=== PATIENT | female | born 1940 ===

== ENCOUNTER 2017-07-30 09:02 | Day surgery (SDC) | payer OTHER ==
[~2017-07-30] VITALS: Ht 162.6 cm; Wt 53.5 kg
[2017-07-30] VITALS (12 sets, daily range): BP systolic 124–155; BP diastolic 55–73
[~2017-07-30 09:02] MED LIST: ceFAZolin 1gm in D5W 55ml IVPB SCH; celeBREX 200mg Cap **SURGERY PATIENTS ONLY ORAL SCH; oxyCONTIN 20mg tab ORAL SCH
[2017-07-30] MEDS ORDERED: MYRBETRIQ50 MG PO (09:54)
[2017-07-30] MEDS ORDERED: METFORMIN HCL500 M1 ORAL (09:54)
[2017-07-30] MEDS ORDERED: NITROFURANTOIN100 MG PO (09:54)
[2017-07-30] MEDS ORDERED: LEVOTHYROXINE75 MCG ORAL (09:55)
--- NOTE | 2017-07-30 10:16 | Pre-Procedure Note/Attestation ---
Pre-Procedure Note/Attestation Complete Prior to Procedure Planned Procedure: right Procedure Narrative: shoulder arthroscopy, possible sad, possible rc repair Indications for Procedure Pre-Operative Diagnosis: right shoulder rct, impingement Attestation I attest that I discussed the nature of the procedure; its benefits; risks and complications; and alternatives (and the risks and benefits of such alternatives ), prior to the procedure, with the patient (or the patient's legal payable representative). I attest that, if there was a reasonable possibility of needing a blood transfusion, the patient (or the patient's legal payable representative) was given the [facility] standardized written summary, pursuant to the [employer] [place] Blood Safety Act ([place] Health and Safety Code # 1645, as amended). I attest that I re-evaluated the patient just prior to the surgery and that there has been no change in the patient's H&P, except as documented below: ANJELICA LONGO Jul 30, 2017 10:16
--- NOTE | 2017-07-30 10:17 | Operative Note - PDOC ---
Operative Note Operative Note Pre-op Diagnosis: right shoulder rct, impingement Procedure: see op report Operative Findings: consistent w/pre-op dx studies Anesthesia: regional Specimen: none Complications: none Condition: stable Estimated Blood Loss: none Implant(s) used?: Yes ANJELICA LONGO Jul 30, 2017 10:17
[2017-07-30] MEDS ORDERED: Norco 5mg/325mg tab ORAL PRN (10:30)
[2017-07-30] MEDS ORDERED: D5 1/2NS 1,000 ML IV SCH (10:30)
[2017-07-30] MEDS ORDERED: HYDROmorphone 1mg/ml Carpuject SUBQ PRN (10:30)
[2017-07-30] MEDS ORDERED: Tylenol #3 tab (300mg/30mg) ORAL PRN (10:30)
[2017-07-30] MEDS ORDERED: oxyCONTIN 20mg tab ORAL ONE (12:35)
[2017-07-30] MEDS ORDERED: celeBREX 200mg Cap **SURGERY PATIENTS ONLY ORAL ONE (12:35)
--- NOTE | 2017-07-30 14:25 | Anethesia Preoperative Eval ---
Anesthesia Pre-op PMH/ROS General Date of Evaluation: Jul 30, 2017 Time of Evaluation: 15:26 Anesthesiologist: Mayo ASA Score: ASA 3 Mallampati Score Class I : Soft palate, uvula, fauces, pillars visible Class II: Soft palate, uvula, fauces visible Class III: Soft palate, base of uvula visible Class IV: Only hard plate visible Mallampati Classification: Class II Surgeon: Charlie Diagnosis: R Shokyle Pain Surgical Procedure: R Shokyle Arthroscopy Anesthesia History: none Family History: no anesthesia problems Allergies: Coded Allergies: ACETAMINOPHEN (Verified Allergy, Unknown, 07/29/17) DIPHENHYDRAMINE (Verified Allergy, Unknown, 07/29/17) PHENYLTOLOXAMINE (Verified Allergy, Unknown, 07/29/17) Medications: see eMAR Past Medical History Cardiovascular: Reports: HTN, other - HL Gastrointestinal/Genitourinary: Reports: GERD, other - Barretts Esophagus Endocrine: Reports: DM, hypothyroidism HEENT: Reports: cataract (L), cataract (R) PSxH Narrative: VERO, Fx R Leg Repair Anesthesia Pre-op Phys. Exam Physician Exam Last Vital Signs Date Time Temp Pulse Resp B/P (MAP) Pulse Ox O2 Delivery O2 Flow Rate FiO2 07/30/17 09:46 98.6 63 18 143/73 97 Room Air 98.6 Constitutional: NAD Neurologic: CN 2-12 intact Cardiovascular: RRR Respiratory: CTA Gastrointestinal: S/NT/ND Airway Exam Mallampati Score: Class II MO: limited ROM: limited Teeth: missing, intact Anesthesia Pre-op A/P Risk Assessment & Plan Assessment: ASA 3 Plan: GA, Femoral/Adductor Block, BIS Status Change Before Surgery: No Pre-Antibiotics Dru gram Ancef IV Given Within 1 Hr of Incision: Yes Time Given: 15:51 Parminder Huber MD Jul 30, 2017 14:25
--- NOTE | 2017-07-30 14:35 | Immediate Post-Op Evaluation ---
Immediate Post-Op Evalulation Immediate Post-Op Evalulation Procedure: R Shoulder Arthroscopy Date of Evaluation: Jul 30, 2017 Time of Evaluation: 17:47 IV Fluids: 1000 LR Blood Products: 0 Estimated Blood Loss: 20 Urinary Output: 0 Blood Pressure Systolic: 137 Blood Pressure Diastolic: 55 Pulse Rate: 67 Respiratory Rate: 16 O2 Sat by Pulse Oximetry: 98 Temperature (Fahrenheit): 97.3 Pain Score (1-10): 2 Nausea: No Vomiting: No Complications 0 Patient Status: awake, reacts, patent, extubated, none Hydration Status: adequate Dru Gram Ancef IV Given Within 1 Hr of Incision: Yes Time Given: 15:51 Parminder Huber MD Jul 30, 2017 14:35
--- NOTE | 2017-07-30 14:36 | 48 Hour Post Anesthesia Eval ---
Post Anesthesia Evaluation Procedure: R Shoulder Arthroscopy Date of Evaluation: Jul 30, 2017 Time of Evaluation: 19:54 Blood Pressure Systolic: 153 0: 74 Pulse Rate: 63 Respiratory Rate: 18 Temperature (Fahrenheit): 98.2 O2 Sat by Pulse Oximetry: 99 Airway: patent Nausea: No Vomiting: No Pain Intensity: 2 Hydration Status: adequate Cardiopulmonary Status: Stable Mental Status/LOC: patient returned to baseline Follow-up Care/Observations: 0 Post-Anesthesia Complications: 0 Follow-up care needed: ready to discharge Parminder Huber MD Jul 30, 2017 14:36
[2017-07-30] MEDS ORDERED: Hydromorphone 0.5mg/0.5ml inj IVP PRN (14:50)
[2017-07-30] MEDS ORDERED: fentaNYL 100 mcg/2 mL IV PRN (14:50)
[2017-07-30] MEDS ORDERED: Ketorolac 30mg Inj IV PRN ×2 (14:50→14:51)
[2017-07-30] MEDS ORDERED: LORazepam Inj 2mg/ml 1ml IV PRN (14:51)
[2017-07-30] MEDS ORDERED: Metoclopramide 10mg/2ml Inj IVP PRN (14:52)
[2017-07-30] MEDS ORDERED: Midazolam 2mg/2ml Inj IVP PRN (14:59)
[2017-07-30] MEDS ORDERED: LR 1000ml 1,000 ML IVLG SCH (15:00)
[2017-07-30] MEDS ORDERED: Atropine Inj 1mg/10ml Syr IV PRN (15:00)
[2017-07-30] MEDS ORDERED: Labetalol 5mg/ml 20ml vial IV PRN (15:00)
[2017-07-30] MEDS ORDERED: Lidocaine 1% MPF 10mg/ml 5ml ONE (15:05)
[2017-07-30] MEDS ORDERED: Sodium Chloride 10ml vial INJ ONE (15:05)
[2017-07-30] MEDS ORDERED: Propofol 200mg/20ml IV ONE (15:05)
[2017-07-30] MEDS ORDERED: Dexamethasone 4mg/ml vial ONE (15:05)
[2017-07-30] MEDS ORDERED: Ropivacaine 5mg/ml Vial 30ml INJ ONE ×2 (15:06→15:16)
[2017-07-30] MEDS ORDERED: EPINEPHrine 1mg/1ml Amp ONE (15:09)
[2017-07-30] MEDS ORDERED: Bupivacaine 0.25% Inj 30ml INJ ONE (15:09)
[2017-07-30] MEDS ORDERED: Alfentanil 2ml Inj ONE (15:20)
[2017-07-30] MEDS ORDERED: Midazolam 2mg/2ml Inj ONE (15:21)
[2017-07-30] MEDS ORDERED: NS Irrig 1000ml ONE (15:30)
[2017-07-30] MEDS ORDERED: LR 1000ml ONE (15:30)
--- NOTE | 2017-07-30 19:30 | Operative Note - Dictated ---
DATE OF OPERATION: 07/30/2017 PREOPERATIVE DIAGNOSES: 1. Right shoulder full-thickness rotator cuff tear. 2. Impingement syndrome. POSTOPERATIVE DIAGNOSES: 1. Right shoulder full-thickness rotator cuff tear. 2. Impingement syndrome. PROCEDURES: 1. Right shoulder arthroscopy and extensive debridement. 2. Right shoulder arthroscopic rotator cuff repair. 3. Right shoulder subacromial decompression bursectomy. SURGEON: Todd Guerra M.D. ANESTHESIA: Interscalene with general. INDICATION FOR PROCEDURE: The patient is a pleasant female, who has had progressive right shoulder pain. She had MRI, which showed a full-thickness rotator cuff tear. Given that she failed conservative treatment, she elected to undergo right shoulder rotator cuff repair. Risks, limitations, expectations of the procedure were discussed in detail including recurrent tear, nerve and vessel damage, risk of infection, etc. All questions were addressed. DESCRIPTION OF PROCEDURE: After informed consent was obtained, the patient was brought to the operating room and the patient was placed under interscalene general anesthesia. The patient was placed carefully in the beach-chair position. Right shoulder was prepped and diarrhea in a sterile manner. Time-out was performed. Portal sites were marked and injected with 0.25% Marcaine with epinephrine. Inferolateral stab incision was then made. Trocar was introduced into the shoulder joint. There was no significant chondral damage. There was significant tearing at the footprint of the supraspinatus tendon and infraspinatus tendon. Shaver was then placed. There is a tear. Debridement of the soft tissue and intraarticular extensive debridement was completed. Once that was done, the biceps tendon was intact along with the subscap. No intra-articular chondral damage. No free loose bodies in the axillary pouch. The camera was repositioned in the subacromial space. Complete bursectomy was performed. Acromioplasty was performed from lateral to medial, completed from posterior to anterior. Once that was done, the rotator cuff was identified, two mattress sutures were then placed along with the lateral arthroscopic anchor. Once that was completed, a second anchor was placed in the articular lateral aspect of the bone to recreate the footprint. The camera was repositioned in the glenohumeral joint. The footprint was completely recreated. At this point, the instruments were removed. Portal sites were closed using 3-0 Monocryl sutures. Steri-Strips and a sterile dressing were applied. The patient was awoken and taken to recovery room with stable signs. ESTIMATED BLOOD LOSS: None. COMPLICATIONS: None. SPECIMENS: None. IMPLANTS: Two arthroscopic anchors. Todd Guerra M.D. DR: CLINT JOB#: [id number] CC:
== END 2017-07-30 19:45 | disposition home or self-care (01) ==
LOC: SUR 09:02
DX: M75.121 Complete rotator cuff tear or rupture of right shoulder, not specified as traumatic (principal); M75.41 Impingement syndrome of right shoulder; I10 Essential (primary) hypertension; E11.9 Type 2 diabetes mellitus without complications; E78.5 Hyperlipidemia, unspecified; E03.9 Hypothyroidism, unspecified; Z90.710 Acquired absence of both cervix and uterus; Z90.722 Acquired absence of ovaries, bilateral; Z88.8 Allergy status to other drugs, medicaments and biological substances
CPT/HCPCS: 29826; 29827; 82962; J0171; J0690; J1100; J1885; J2250; J2405; J2704; J2795; J3490